=== PATIENT | male | born 1980 | race Caucasian/White ===

== ENCOUNTER 2020-09-10 16:34 | Emergency (ER) | payer BC, SELFPAY ==
[2020-09-10 17:19] VITALS: BP 146/86; PULSE 85; RESP 14; TEMP 36.4; O2SAT 99
--- NOTE | 2020-09-10 19:04 | ED.EYEPROB ---
HPI - Eye Problem General Chief complaint: Eye Problems Stated complaint: left eye injury Time Seen by Provider: 09/10/20 17:51 Source: patient Mode of arrival: ambulatory Limitations: no limitations History of Present Illness HPI Narrative: Patient is a 40 year old male who presents with injury to left eye. Patient reports he was assembling shelf and hit self with metal from shelf to left eye. He reports having contact lens in. He reports slightly blurred vision and photophobia. He denies other injuries or complaints at this time. Patient has no significant medical history. Patient denies taking [id number] medications for pain prior to arrival. MD chief complaint: eye pain and eye injury Related Data Allergies Allergy/AdvReac Type Severity Reaction Status Date / Time No Known Allergies Allergy Verified 09/10/20 17:51 Review of Systems Review of Systems: Narrative: CONSTITUTIONAL: Denies fever, chills, or sweats. EYES: Left eye pain ENT: Denies rhinorrhea, congestion, sore throat, or otalgia. CARDIOVASCULAR: Denies chest pain, palpitations, or edema. RESPIRATORY: Denies cough or dyspnea. GASTROINTESTINAL: Denies abdominal pain, nausea, vomiting, or diarrhea. GENITOURINARY: Denies dysuria or hematuria. SKIN: Denies rash or itching. MUSCULOSKELETAL: Denies back pain, joint pain, or myalgia. NEUROLOGIC: Denies headache, numbness, dizziness, or weakness. PSYCHIATRIC: Denies anxiety or depression. [facility] Past Medical History Medical History (Updated 09/10/20 @ 19:21 by MATEUS Sousa) No significant past medical history Surgical History Surgical History (Updated 09/10/20 @ 19:08 by MATEUS Sousa) No significant past surgical history Family History Family History (Updated 09/10/20 @ 19:08 by MATEUS Sousa) Other No significant family history Social History Social History (Updated 09/10/20 @ 19:08 by MATEUS Sousa) Smoking status: Never smoker Alcohol intake: current Alcohol use details: occasional Substance use: never Living arrangements: with family Comments At the time of signature, I have reviewed and agree with nursing past medical, surgical, social, and family history unless otherwise noted. Please see nursing chart for further information. There is no relevant family history pertinent to the presenting complaint. Exam Narrative: Exam Narrative: GENERAL: Well-appearing, well-nourished, and in no acute distress. HEAD: Normocephalic, atraumatic. EYES: Ecchymosis and edema to left orbital area, small abrasion to upper lid. ENT: Mucous membranes pink and moist. CHEST: No respiratory distress. Clear to auscultation. HEART: Regular rate and rhythm. No murmur appreciated. Normal peripheral pulses. EXTREMITIES: Normal range of motion. No edema. SKIN: Warm, dry, no rash. NEURO: No focal deficits. Alert and oriented x3. Gait steady. PSYCH: Normal affect. No signs of depression or anxiety. Course Vital Signs Vital signs: Vital Signs Temperature 36.4 C 09/10/20 17:19 Pulse Rate 85 09/10/20 17:19 Respiratory Rate 14 09/10/20 17:19 Blood Pressure 146/86 H 09/10/20 17:19 Pulse Oximetry 99 09/10/20 17:19 Temperature 36.4 C 09/10/20 17:19 Pulse Rate 85 09/10/20 17:19 Respiratory Rate 14 09/10/20 17:19 Blood Pressure 146/86 H 09/10/20 17:19 Pulse Oximetry 99 09/10/20 17:19 Reviewed MDM - Eye Problem Differential Diagnosis Differential diagnosis: Likely corneal abrasion, periorbital cellulitis, subconjunctival hemorrhage and corneal ulcer Critical Care Time Critical Care Time Critical Care Time: No Discharge Plan Discharge Clinical Impression: Corneal abrasion Patient Disposition: Home, Self-Care Condition: Stable Instructions: Antibiotic Form, Corneal Abrasion (DC) Additional Instructions: You may take Tylenol or Ibuprofen for pain, cool compresses may be used for swelling and comfort. Use ointmen
--- NOTE | 2020-09-10 19:39 | PC.NURSE ---
Pt refused tetanus and was advised that injection is to prevent bacterial infection to eye. Pt states I don't want to have to wait to get get my covid shot because of this. I don't need that. I don't want it . Visual acuity test performed and pt vision 20/20; EDNP notified. Pt noted to be alert, stable and in no obvious distress. Moderate swelling noted to left eye with mild abrasion. No bleeding noted.
[2020-09-10 19:43] VITALS: BP 136/83; PULSE 79; RESP 18; TEMP 37; O2SAT 99
== END 2020-09-10 19:45 | disposition home or self-care (01) ==
PROVIDERS: Emergency Provider Nurse Practitioner
DX: S05.02XA Injury of conjunctiva and corneal abrasion without foreign body, left eye, initial encounter (principal); W22.8XXA Striking against or struck by other objects, initial encounter
CPT/HCPCS: 90715; 99283; A9270

== ENCOUNTER 2020-11-25 15:39 | Emergency (ER) | payer BC, SELFPAY ==
[2020-11-25 15:48] VITALS: BP 155/67; PULSE 84; RESP 16; TEMP 36.9; O2SAT 100
--- NOTE | 2020-11-25 15:57 | ED.GENADULT ---
HPI - General Adult General Chief complaint: Skin/Abscess/Foreign Body Stated complaint: rash Source: patient Mode of arrival: ambulatory Limitations: no limitations History of Present Illness HPI narrative: 40 y/o male. PMHx Negative. Presents to [facility] today with acute complaints of rash located to bilateral wrist, chest, and abdomen for the past 1 week. Pt states to have been working outside and engaging in yard work, pulling weeds , prior to manifestation onset. He has been applying Calamine Lotion at home with sub-therapeutic relief. No facial or oral involvement. No dyspnea, wheezing. Pt is w/o additional acute complaints of illness upon exam. Related Data Home Medications Medication Instructions Recorded Confirmed No Home Medications 11/25/20 11/25/20 Allergies Allergy/AdvReac Type Severity Reaction Status Date / Time No Known Allergies Allergy Verified 11/25/20 15:54 Review of Systems Review of Systems: CONSTITUTIONAL: Denies fever, chills, sweats. EYES: Denies visual changes, redness, discharge. ENT: Denies rhinorrhea, congestion, sore throat, otalgia. CARDIOVASCULAR: Denies chest pain, palpitations, edema. RESPIRATORY: Denies dyspnea, wheezing, cough GASTROINTESTINAL: Denies abdominal pain, nausea, vomiting, diarrhea. GENITOURINARY: Denies dysuria, hematuria, abnormal discharge SKIN:Positive rash & itching. MUSCULOSKELETAL: Denies acute back pain, joint pain, or myalgia. NEUROLOGIC: Denies numbness, or focal weakness. PSYCHIATRIC: Denies anxiety or depression. All systems reviewed & are unremarkable except as noted in HPI and below PMFSH Past Medical History Medical History No significant past medical history Surgical History Surgical History No significant past surgical history Family History Family History Other No significant family history Social History Social History Smoking status: Never smoker Alcohol intake: current Alcohol use details: occasional Substance use: never Exam Narrative: GENERAL: This is a well-nourished, well-developed adult, in no apparent distress. HEAD: normocephalic, atraumatic. EYES: PERRL. Sclera clear/white. EARS: External ears normal, auditory canals clear and without drainage, TMs normal. NOSE: External nose normal.No Rhinorrhea, no obstruction, nares patent. THROAT: Mucous membranes moist, posterior pharynx clear. No exudates. NECK: Neck supple, non-tender without lymphadenopathy, masses or thyromegaly. CARDIOVASCULAR: Regular rate and rhythm without murmurs, gallops, or rubs. RESPIRATORY: Clear to auscultation. Breath sounds equal bilaterally. No wheezes, rales, or rhonchi. GASTROINTESTINAL: Abdomen soft, non-tender, nondistended. Bowel sounds are active. No guarding. SKIN: warm, intact. With scattered erythematosus rash located to bilateral inner wrists, upper abdomen, and lower chest wall. Areas exhibit honey colored crustation and serosanguineous discharge. No deep tissue wounds or fluctuance. NEURO: No focal neurologic deficits. EXTREMITIES: Negative. Course Course Emergency Course: -40 y/o male. PMHx negative. -Rash to arms and Torso after pulling weeds outside. -Physical exam consistent with Poison Meka/Other Contact Dermatitis. Proceed accordingly. Vital Signs Vital signs: Vital Signs Temperature 36.9 C 11/25/20 15:48 Pulse Rate 84 11/25/20 15:48 Respiratory Rate 16 11/25/20 15:48 Blood Pressure 155/67 H 11/25/20 15:48 Pulse Oximetry 100 11/25/20 15:48 Temperature 36.9 C 11/25/20 15:48 Pulse Rate 84 11/25/20 15:48 Respiratory Rate 16 11/25/20 15:48 Blood Pressure 155/67 H 11/25/20 15:48 Pulse Oximetry 100 11/25/20 15:48 Medical D
== END 2020-11-25 15:58 | disposition home or self-care (01) ==
PROVIDERS: Emergency Provider Nurse Practitioner Adult Health
DX: L24.9 Irritant contact dermatitis, unspecified cause (principal)
CPT/HCPCS: 99213; G0463